=== PATIENT | male | born 1980 | race Caucasian/White ===

== ENCOUNTER 2021-07-16 15:34 | Emergency (ER) | payer BC, SELFPAY ==
[2021-07-16 15:43] VITALS: BP 142/100; PULSE 109; RESP 18; TEMP 37.2; O2SAT 98; BMI 35.0
[2021-07-16 16:00] LABS: MANUAL DIFF FLAG NO
[2021-07-16 16:03] LABS: Basophils Percent Auto 0.7 % (0-2); Eosinophils Absolute Auto 0.1 X10*3/uL (0.0-0.4); Eosinophils Percent Auto 1.9 % (0-4); Hematocrit 40.5 % (42.0-52.0); Hemoglobin 14.8 g/dl (14.0-18.0); Imm Gran Abs Auto 0.04 X10*3/uL (0.00-0.03); Imm Gran Pct Auto 0.7 % (0.0-0.4); Lymphocytes Absolute Auto 0.9 X10*3/uL (1.2-4.9); Lymphocytes Percent Auto 15.8 % (20-40); Mean Corpuscular HGB Conc 36.5 g/dl (31.0-36.0); Mean Corpuscular Hemoglobin 36.3 pg (27.0-33.0); Mean Corpuscular Volume 99.3 fL (80.0-98.0); Mean Platelet Volume 9.4 fL (9.4-12.4); Monocytes Absolute Auto 0.5 X10*3/uL (0.1-1.2); Monocytes Percent Auto 8.6 % (2-11); Neutrophils Absolute Auto 3.9 x10*3/uL (2.0-8.3); Neutrophils Percent Auto 72.3 % (45-73); Red Blood Count 4.08 X10*6/uL (4.60-5.80); Red Cell Distribution Width 12.9 % (11.0-16.0); White Blood Count 5.4 X10*3/uL (4.8-10.8)
[2021-07-16 16:20] LABS: Ethanol < 10 mg/dL
[2021-07-16 16:21] LABS: Platelet Count 68 X10*3/uL (160-400)
--- NOTE | 2021-07-16 17:39 | MHC.RECOVSUP ---
Recovery Support note: Patient is a 41 year old Croatian speaking male who presented to [facility] seeking detox. This freelance copywriter checked in with patient in the waiting room to discuss ATS treatment. Patient reports he was hoping to get admitted to the hospital and this freelance copywriter explained that patient's are typically referred out for ATS unless it is not safe for them to do so. Explained the medical clearance process and referring to ATS facilities. Patient provided with a list of ATS facilities in the event that he would like to make calls while he waits for a bed in the ED. Recovery Team will follow up with patient.
--- NOTE | 2021-07-17 09:28 | MHC.RECOVRN ---
Received notification that pt was admitted to [facility] in [place] yesterday evening from the ED.
== END 2021-07-16 21:44 | disposition left against medical advice (07) ==
PROVIDERS: Emergency Provider Emergency Medicine
DX: F10.130 Alcohol abuse with withdrawal, uncomplicated (principal); Y90.0 Blood alcohol level of less than 20 mg/100 ml
CPT/HCPCS: 36415; 82077; 85025; 99281; 99283